=== PATIENT | male | born 1955 | race Caucasian/White ===

== ENCOUNTER 2023-08-24 14:31 | Emergency (ER) | payer OTHER ==
[~2023-08-24] VITALS: Ht 167.6 cm; Wt 62.7 kg
[2023-08-24 14:42] VITALS: TEMP 98
[2023-08-24] MEDS: SODIUM CHLORIDE 0.9% 1,000 ML IV ONE (14:50)
[2023-08-24] MEDS: ONDANSETRON HCL 4 MG/2 ML VIAL IVP ONE (14:50)
[2023-08-24] MEDS: FAMOTIDINE 20 MG/2 ML VIAL IVP ONE (14:50)
[2023-08-24 15:20] LABS: BASOPHILS % (AUTO) 1.4 % (0.0-2.0); HEMATOCRIT 41.7 % (41-53); HEMOGLOBIN 14.2 g/dL (13.5-17.5); LYMPHOCYTES # (AUTO) 0.9 K/uL (1.0-4.8); LYMPHOCYTES % (AUTO) 12.8 % (22.0-44.0); MEAN CORPUSCULAR HEMOGLOBIN 36.3 pg (26.0-34.0); MEAN CORPUSCULAR VOLUME 107 fL (80-100); MONOCYTES # (AUTO) 0.5 K/uL (0.1-1.0); MONOCYTES % (AUTO) 7.2 % (2.0-9.0); NEUTROPHILS # (AUTO) 5.6 K/uL (1.8-7.7); NEUTROPHILS % (AUTO) 76.6 % (40.0-70.0); RED CELL DISTRIBUTION WIDTH 13.7 % (11.5-14.5); WHITE BLOOD COUNT (AUTO) 7.3 K/uL (4.5-11.0)
[2023-08-24 15:23] LABS: ANION GAP 13 mmol/L (8-16); CALCIUM, TOTAL 7.8 mg/dL (8.8-10.5); CARBON DIOXIDE 27 mmol/L (22-29); CHLORIDE 102 mmol/L (98-107); CREATININE 0.67 mg/dL (0.60-1.30); GLOMERULAR FILTR. RATE CALC > 60 mL/min (>60); GLUCOSE,RANDOM 131 mg/dL (70-110); SODIUM SERUM 142 mmol/L (136-145); UREA NITROGEN, BLOOD 3 mg/dL (7-18)
[2023-08-24 15:29] LABS: ALANINE AMINOTRANSFERASE 50 U/L (12-78); ALBUMIN 3.1 g/dL (3.4-5.0); ALCOHOL, BLOOD (SERUM) 443 mg/dL (0-10); ALKALINE PHOSPHATASE 173 U/L (46-116); ASPARTATE AMINOTRANSFERASE 132 U/L (15-37); BILIRUBIN,TOTAL 1.7 mg/dL (0.1-1.0); LIPASE 135 U/L (16-77); TOTAL PROTEIN, SERUM 7.5 g/dL (6.4-8.2)
[2023-08-24 15:54] LABS: PLATELET COUNT (AUTO) 63 K/uL (150-450); RBC MORPHOLOGY COMMENT ABNORMAL RBC MORPH
[2023-08-24 16:06] LABS: PH,URINE DRUG SCREEN 6.5 (5.0-8.0)
[2023-08-24 16:15] LABS: AMPHET/METH SCREEN,URINE NEGATIVE (NEGATIVE); BARBITURATE SCREEN, URINE NEGATIVE (NEGATIVE); BENZODIAZEPINES SCREEN,URINE NEGATIVE (NEGATIVE); CANNABINOID SCREEN,URINE NEGATIVE (NEGATIVE); COCAINE SCREEN,URINE NEGATIVE (NEGATIVE); METHADONE SCREEN, URINE NEGATIVE (NEGATIVE); OPIATE SCREEN,URINE NEGATIVE (NEGATIVE); PHENCYCLIDINE SCREEN,URINE NEGATIVE (NEGATIVE)
[2023-08-24 16:17] LABS: ALCOHOL, URINE DRUG SCREEN POSITIVE (NEGATIVE)
[2023-08-24 17:34] VITALS: BP 138/76; PULSE 72; RESP 18
== END 2023-08-24 17:55 | disposition home or self-care (01) ==
LOC: EMS 14:54
DX: F10.129 Alcohol abuse with intoxication, unspecified (principal); Z88.0 Allergy status to penicillin; Y90.9 Presence of alcohol in blood, level not specified
CPT/HCPCS: 99284; 96374; 96361; 96375; 80053; 82962; 83690; 85025; 36415; 80307; G0480; J3490; J2405; J7030